=== PATIENT | female | born 1990 | race American Indian/Alaskan Native ===

== ENCOUNTER 2019-06-10 21:15 | Emergency (ER) | payer MEDICAID ==
[2019-06-10] MEDS ORDERED: IBUPROFEN 600 MG TAB PO ONE (21:31)
--- NOTE | 2019-06-10 21:34 | Event Note ---
ED Screening Note Date of service: 06/10/19 Time: 21:33 ED Screening Note: 28 y/o female comes in for right ankle pain and swelling s/o fall [employer]. Has been amenorrhea for a year. This initial assessment/diagnostic orders/clinical plan/treatment(s) is/are subject to change based on patients health status, clinical progression and re- assessment by fellow clinical providers in the ED. Further treatment and workup at subsequent clinical providers discretion. Patient/guardian urged not to elope from the ED as their condition may be serious if not clinically assessed and managed. Initial orders include:
--- NOTE | 2019-06-11 00:01 | XRay Report ---
RIGHT ANKLE 3 VIEWS INDICATION / CLINICAL INFORMATION: Fall with right ankle pain. COMPARISON: None available. FINDINGS: BONES / JOINT(S): No acute fracture or subluxation. No significant arthritis. SOFT TISSUES: No significant abnormality. ADDITIONAL FINDINGS: None. IMPRESSION: No acute osseous abnormality. Signer Name: Daniel Mendez MD Signed: 06/10/2019 11:57 PM Workstation Name: [id number]
--- NOTE | 2019-06-11 00:13 | Emergency Department Report ---
ED Extremity Problem HPI - General Chief complaint: Fall Stated complaint: FALL/RT ANKLE INJURY Time Seen by Provider: 06/10/19 21:31 Source: patient Mode of arrival: Ambulatory Limitations: No Limitations - History of Present Illness Initial comments: Patient is a 28-year-old black female who tripped and fell earlier today and now has pain at the right ankle. Patient states the pain is lateral ankle. There is swelling present. States she is having difficulty bearing weight secondary to pain. Pain is 10 out of 10 in severity. Patient did not hear a pop or a snapping sound. Severity scale (0 -10): 10 - Related Data Previous Rx's Medication Instructions Recorded Last Taken Type Tramadol HCl [Ultram] 50 mg PO Q6HR PRN #24 tablet 05/12/18 Unknown Rx Ketorolac [Toradol] 10 mg PO Q6H PRN #12 tablet 06/11/19 Unknown Rx Allergies Allergy/AdvReac Type Severity Reaction Status Date / Time No Known Allergies Allergy Verified 05/12/18 07:42 ED Review of Systems ROS: Stated complaint: FALL/RT ANKLE INJURY Other details as noted in HPI Comment: All other systems reviewed and negative ED Past Medical Hx - Past Medical History Previous Medical History?: Yes Hx Hypertension: Yes Additional medical history: Amenorrhea - Surgical History Past Surgical History?: No - Social History Smoking Status: Never Smoker Substance Use Type: None - Medications Home Medications: Home Medications Medication Instructions Recorded Confirmed Last Taken Type Tramadol HCl [Ultram] 50 mg PO Q6HR PRN #24 tablet 05/12/18 Unknown Rx Ketorolac [Toradol] 10 mg PO Q6H PRN #12 tablet 06/11/19 Unknown Rx ED Physical Exam - General Limitations: No Limitations General appearance: alert, in no apparent distress - Head Head exam: Present: atraumatic, normocephalic - Eye Eye exam: Present: normal appearance - ENT ENT exam: Present: mucous membranes moist - Neck Neck exam: Present: normal inspection, full ROM. Absent: tenderness - Expanded Lower Extremity Exam Right Hip exam: Present: normal inspection Upper Leg exam: Present: normal inspection Knee exam: Present: normal inspection Lower Leg exam: Present: normal inspection Ankle exam: Present: tenderness, swelling (lateral malleolus). Absent: full ROM, deformity ED Course Vital Signs 06/10/19 21:20 Temperature 98.3 F Pulse Rate 45 L Respiratory 20 Rate Blood Pressure 155/124 O2 Sat by Pulse 99 Oximetry ED Medical Decision Making - Radiology Data Radiology results: image reviewed (tray shows no acute fracture) - Medical Decision Making Patient was placed in a air cast with Mason wrap will be discharged home. Orthopedic follow-up has been given. Critical care attestation.: If time is entered above; I have spent that time in minutes in the direct care of this critically ill patient, excluding procedure time. ED Disposition Clinical Impression: Ankle sprain Qualifiers: Encounter type: initial encounter Involved ligament of ankle: anterior talofibular ligament Laterality: right Qualified Code(s): S93.491A - Sprain of other ligament of right ankle, initial encounter Disposition: TO HOME OR SELFCARE Is pt being admited?: No Does the pt Need Aspirin: No Condition: Stable Instructions: Ankle Sprain (ED), Ankle Stirrup Splint (ED), Crutch Instructions (ED) Referrals: SISSY DOUGLAS MD [Staff Physician] - 3-5 Days Time of Disposition: 00:13
[2019-06-11 00:55] VITALS: BP 145/83
== END 2019-06-11 00:45 | disposition home or self-care (01) ==
LOC: ED 21:15
DX: S93.401A Sprain of unspecified ligament of right ankle, initial encounter (principal); I10 Essential (primary) hypertension; Z79.899 Other long term (current) drug therapy; W19.XXXA Unspecified fall, initial encounter; Y93.89 Activity, other specified; Y92.89 Other specified places as the place of occurrence of the external cause; Y99.8 Other external cause status
CPT/HCPCS: 36415; 84702

== ENCOUNTER 2020-02-15 15:32 | Emergency (ER) | payer MEDICAID ==
[2020-02-15 15:55] VITALS: BP 138/85
--- NOTE | 2020-02-15 19:24 | Emergency Department Report ---
ED ENT HPI - General Chief complaint: Dental/Oral Stated complaint: TOOTH PAIN, VOMITING Time Seen by Provider: 02/15/20 19:23 Source: patient Mode of arrival: Ambulatory Limitations: No Limitations - History of Present Illness Initial comments: This is a 29-year-old female nontoxic well in appearance with no signs of distress presents to the ED with complaint of toothache. Stated had vomiting episode 3 daysa go after taking Cipro and stoped taking medications. Patient denies any facial swelling. Agrees to seeing a dentist. Denies any fever, chills, headache, nausea, vomiting, chest pain or SOB. Denies any other complaints. -: days(s) Location: tooth # Severity: mild Severity scale (0 -10): 8 Quality: aching Consistency: constant Improves with: none Worsens with: none Associated Symptoms: gum swelling, toothache. denies: fever, cough, pain with swallowing, sore throat, tinnitus, hearing loss, discharge from ear, rhinorrhea - Related Data Previous Rx's Medication Instructions Recorded Last Taken Type Tramadol HCl [Ultram] 50 mg PO Q6HR PRN #24 tablet 05/12/18 Unknown Rx Ketorolac [Toradol] 10 mg PO Q6H PRN #12 tablet 06/11/19 Unknown Rx Clindamycin [Clindamycin CAP] 300 mg PO Q8H #21 cap 02/15/20 Unknown Rx Allergies Allergy/AdvReac Type Severity Reaction Status Date / Time ciprofloxacin AdvReac Vomiting Verified 02/15/20 19:24 ED Dental HPI - General Chief complaint: Dental/Oral Stated complaint: TOOTH PAIN, VOMITING Time Seen by Provider: 02/15/20 19:23 Source: patient Mode of arrival: Ambulatory Limitations: No Limitations - Related Data Previous Rx's Medication Instructions Recorded Last Taken Type Tramadol HCl [Ultram] 50 mg PO Q6HR PRN #24 tablet 05/12/18 Unknown Rx Ketorolac [Toradol] 10 mg PO Q6H PRN #12 tablet 06/11/19 Unknown Rx Clindamycin [Clindamycin CAP] 300 mg PO Q8H #21 cap 02/15/20 Unknown Rx Allergies Allergy/AdvReac Type Severity Reaction Status Date / Time ciprofloxacin AdvReac Vomiting Verified 02/15/20 19:24 ED Review of Systems ROS: Stated complaint: TOOTH PAIN, VOMITING Other details as noted in HPI Constitutional: denies: chills, fever Eyes: denies: eye pain, eye discharge, vision change ENT: dental pain. denies: ear pain, throat pain Respiratory: denies: cough, shortness of breath, wheezing Cardiovascular: denies: chest pain, palpitations Endocrine: no symptoms reported Gastrointestinal: nausea, vomiting. denies: abdominal pain, diarrhea Genitourinary: denies: urgency, dysuria, discharge Musculoskeletal: denies: back pain, joint swelling, arthralgia Skin: denies: rash, lesions Neurological: denies: headache, weakness, paresthesias Psychiatric: denies: anxiety, depression Hematological/Lymphatic: denies: easy bleeding, easy bruising ED Past Medical Hx - Past Medical History Hx Hypertension: Yes Additional medical history: Amenorrhea - Social History Smoking Status: Never Smoker Substance Use Type: None - Medications Home Medications: Home Medications Medication Instructions Recorded Confirmed Last Taken Type Tramadol HCl [Ultram] 50 mg PO Q6HR PRN #24 tablet 05/12/18 Unknown Rx Ketorolac [Toradol] 10 mg PO Q6H PRN #12 tablet 06/11/19 Unknown Rx Clindamycin [Clindamycin CAP] 300 mg PO Q8H #21 cap 02/15/20 Unknown Rx ED Physical Exam - General Limitations: No Limitations General appearance: alert, in no apparent distress - Head Head exam: Present: atraumatic, normocephalic - Eye Eye exam: Present: normal appearance - Expanded ENT Exam Expanded Ear exam: Present: normal external inspection Mouth exam: Present: normal external inspection. Absent: drooling, trismus, muffled voice Teeth exam: Present: dental caries, fractured tooth #, dental tenderness #, gingival enlargement, other (uvula midline) - Neck Neck exam: Present: normal inspection, full ROM. Absent: tenderness, meningismus, lymphadenopathy - Respiratory Respiratory exam: Absent: respiratory distress - Cardiovascular Cardiovascular Exam: Present: regular rate - GI/Abdominal GI/Abdominal exam: Present: soft, normal bowel sounds. Absent: distended, tenderness, guarding, rebound, rigid, diminished bowel sounds - Extremities Exam Extremities exam: Present: full ROM - Back Exam Back exam: Present: full ROM - Neurological Exam Neurological exam: Present: alert, oriented X3, normal gait - Psychiatric Psychiatric exam: Present: normal affect, normal mood - Skin Skin exam: Present: warm, dry, intact, normal color. Absent: rash ED Course Vital Signs 02/15/20 15:54 Temperature 98.4 F Pulse Rate 58 L Respiratory 18 Rate Blood Pressure 138/85 O2 Sat by Pulse 98 Oximetry - Reevaluation(s) Reevaluation #1: 02/15/20 20:03 Patient is speaking in full sentences with no signs of distress noted. ED Medical Decision Making - Medical Decision Making Will change medication to Clinda due to adverse affect of cipro with n/v. Patient was instructed to Follow-up with a primary care doctor in 3-5 days or if symptoms worsen and continue return to emergency room as soon as possible. At time of discharge, the patient does not seem toxic or ill in appearance. No acute signs of distress noted. Patient agrees to discharge treatment plan of care. No further questions noted by the patient. Critical care attestation.: If time is entered above; I have spent that time in minutes in the direct care of this critically ill patient, excluding procedure time. ED Disposition Clinical Impression: Dental caries, Gingivitis Adverse effects of medication Qualifiers: Encounter type: initial encounter Qualified Code(s): T50.905A - Adverse effect of unspecified drugs, medicaments and biological substances, initial encounter Disposition: DC-01 TO HOME OR SELFCARE Is pt being admited?: No Does the pt Need Aspirin: No Condition: Stable Additional Instructions: Follow-up with a primary care doctor in 3-5 days or if symptoms worsen and continue return to emergency room as soon as possible. Prescriptions: Clindamycin [Clindamycin CAP] 300 mg PO Q8H #21 cap Referrals: BRIGID ESPINOSA MD [Primary Care Provider] - 3-5 Days BONNIE MOSQUERA MD [Staff Physician] - 3-5 Days [facility] [Outside] - 3-5 Days
== END 2020-02-15 21:12 | disposition home or self-care (01) ==
LOC: ED 15:32
DX: K08.89 Other specified disorders of teeth and supporting structures (principal); R11.10 Vomiting, unspecified; T36.8X5A Adverse effect of other systemic antibiotics, initial encounter; K02.9 Dental caries, unspecified; K05.10 Chronic gingivitis, plaque induced; I10 Essential (primary) hypertension; Z79.2 Long term (current) use of antibiotics; Z79.899 Other long term (current) drug therapy; Z88.1 Allergy status to other antibiotic agents; Y92.89 Other specified places as the place of occurrence of the external cause
CPT/HCPCS: 99282